=== PATIENT | male | born 1965 | race Two or more races ===

== ENCOUNTER 2018-11-29 14:09 | Emergency (ER) | payer OTHER ==
[~2018-11-29] VITALS: Ht 160 cm; Wt 66.2 kg
[2018-11-29 14:27] VITALS: BP 117/64
--- NOTE | 2018-11-29 15:09 | RAD ---
Chest PA and lateral 11/29/2018. Reason for exam: Cough and fever. History of TB. There is suggestion of focal opacity in the medial right lung base in the lower lobe. This could be mild infiltrate or atelectasis. The lungs otherwise are clear and no pleural fluid is seen. No apical cavitary or fibrotic change is seen. Heart size is normal. IMPRESSION: Focal right lower lobe opacity. Electronically signed by: Dragan Astorga Jr., MD (11/29/2018 3:06 PM) [facility]
[2018-11-29] MEDS ORDERED: cefTRIAXone IM 1 GM VIAL IM ONE (15:30)
[2018-11-29] MEDS ORDERED: BENZ100C PO (15:41)
[2018-11-29] MEDS ORDERED: ALBU2.5V8 INH (15:41)
[2018-11-29] MEDS ORDERED: AZIT250T PO (15:41)
--- NOTE | 2018-11-29 15:42 | PHYS DOC ---
Past Medical History Past Medical History: TB Additional Past Medical Histor: PT COMPLETED ALL TB MEDICATIONS [place] Past Surgical History: No Surgical History Alcohol Use: Heavy Additional Information: HASN'T DRANK IN ONE WEEK. Drug Use: None Adult General Chief Complaint Chief Complaint: FEVER HPI HPI Patient is a 53 year old non-Khmer speaking male with history of smoking who presents with complaining of cough and fever for one week. Patient complaining of subjective fever and productive cough and shortness of breath for 1 week that does not getting better with [id number] medication. Patient denies vomiting, diarrhea, headache and myalgia, sick contact, history of the same problem. Patient immediately return to yesterday 5 years ago and because of abnormal chest x-ray treated with TB medication. Review of Systems Review of Systems Constitutional: Denies fever or chills [] Eyes: Denies change in visual acuity, redness, or eye pain [] HENT: Denies nasal congestion or sore throat [] Respiratory: Denies cough or shortness of breath [] Cardiovascular: No additional information not addressed in HPI [] GI: Denies abdominal pain, nausea, vomiting, bloody stools or diarrhea [] : Denies dysuria or hematuria [] Musculoskeletal: Denies back pain or joint pain [] Integument: Denies rash or skin lesions [] Neurologic: Denies headache, focal weakness or sensory changes [] Endocrine: Denies polyuria or polydipsia [] All other systems were reviewed and found to be within normal limits, except as documented in this note. Current Medications Current Medications Current Medications Medications (Trade) Dose Ordered Sig/[facility] Start Time Stop Time Status Last Admin Dose Admin Ceftriaxone Sodium (Rocephin Im) 1 gm 1X ONCE 11/29/18 15:30 11/29/18 15:31 DC 11/29/18 15:35 1 GM Allergies Allergies Allergies Coded Allergies Type Severity Reaction Last Updated Verified No Known Drug Allergies 11/29/18 No Physical Exam Physical Exam Constitutional: Well developed, well nourished, no acute distress, non-toxic appearance, afebrile. [] HENT: Normocephalic, atraumatic, bilateral external ears normal, oropharynx moist, no oral exudates, nose normal. [] Eyes: PERRLA, EOMI, conjunctiva normal, no discharge. [] Neck: Normal range of motion, no tenderness, supple, no stridor. [] Cardiovascular:Heart rate regular rhythm, no murmur [] Lungs & Thorax: Bilateral breath sounds clear to auscultation [] Abdomen: Bowel sounds normal, soft, no tenderness, no masses, no pulsatile masses. [] Skin: Warm, dry, no erythema, no rash. [] Back: No tenderness, no CVA tenderness. [] Extremities: No tenderness, no cyanosis, no clubbing, ROM intact, no edema. [] Neurologic: Alert and oriented X 3, normal motor function, normal sensory function, no focal deficits noted. [] Psychologic: Affect normal, judgement normal, mood normal. [] Current Patient Data Vital Signs Vital Signs Date Time Temp Pulse Resp B/P (MAP) Pulse Ox O2 Delivery O2 Flow Rate FiO2 11/29/18 14:27 99.6 77 14 117/64 (81) 95 Room Air 99.6 EKG EKG [] Radiology/Procedures Radiology/Procedures [][facility] [address] [place] [address] IMAGING REPORT Signed PATIENT: NENA YEE ACCOUNT: [id number] : 1965 LOCATION: ER AGE: 53 SEX: M EXAM STATUS: REG ER ORD. PHYSICIAN: CASSANDRA NICHOLS MD REASON: cough and subjective fever, history of TB PROCEDURE: CHEST PA & LATERAL Chest PA and lateral 11/29/2018. Reason for exam: Cough and fever. History of TB. There is suggestion of focal opacity in the medial right lung base in the lower lobe. This could be mild infiltrate or atelectasis. The lungs otherwise are clear and no pleural fluid is seen. No apical cavitary or fibrotic change is seen. Heart size is normal. IMPRESSION: Focal right lower lobe opacity. Electronically signed by: Blossom Mackey Jr., MD (11/29/2018 3:06 PM) [facility] DICTATED and SIGNED BY: BLOSSOM MACKEY Jr, MD DATE: 11/29/18 150 Course & Med Decision Making Course & Med Decision Making Pertinent Imaging studies reviewed. (See chart for details) Evaluation of patient in ER showed 53-year-old male patient with history of s moking complaining of productive cough and shortness of breath and subjective fever. Patient had unremarkable physical exam. Chest x-ray showed small pneumonia in right lower lobe.. Patient had history of completed treatment for [place] ago without concern for TB in chest x-ray. Patient treated with IM Rocephin in ER and was advised to quit smoking. I've spoken with the patient and/or caregivers. I've explained the patient's condition, diagnosis and treatment plan based on information available to me at this time. I've answered the patient's and/or caregivers questions and addressed any concerns. The patient and/or caregivers have a good understanding the patient's diagnosis, condition and treatment plan as can be expected at this point. Vital signs have been stabilized. The patient's condition is stable for discharge from the emergency department. The patient will pursue further outpatient evaluation with her primary care provider or other designated consulting physician as outlined in the discharge instructions. Patient and/or caregivers are agreeable to this plan of care and follow-up instructions have been explained in detail. The patient and/or caregivers have received these instructions in written format and expressed understanding of these discharge instructions. The patient and her caregivers are aware that if any significant change in condition or worsening of symptoms should prompt him to immediately return to this of the closest emergency department. If an emergent department is not readily available I would encourage him to call 911. Nell Disclaimer Mikeon Disclaimer This electronic medical record was generated, in whole or in part, using a voice recognition dictation system. Departure Departure Impression: Primary Impression: Pneumonia Additional Impressions: Tobacco abuse Tobacco abuse counseling Disposition: HOME, SELF-CARE (at 1540) Condition: STABLE Referrals: NO PCP (PCP) Patient Instructions: Pneumonia, Adult, Smoking Cessation, Tips For Success Additional Instructions: Drink plenty of liquids Follow-up with your primary care physician in 3-5 days Return to ER if not getting better Scripts Azithromycin (ZITHROMAX) 250 Mg Tablet 1 PKG PO UD for infection, #1 PKG Prov: CASSANDRA NICHOLS MD 11/29/18 Benzonatate (TESSALON PERLE) 100 Mg Capsule 1 CAP PO TID for cough, #21 CAP Prov: CASSANDRA NICHOLS MD 11/29/18 Albuterol Sulfate (PROAIR HFA INHALER) 8.5 Gm Hfa.aer.ad 2 PUFF INH PRN Q6HRS PRN for SHORTNESS OF BREATH, #1 INHALER 0 Refills Prov: CASSANDRA NICHOLS MD 11/29/18 Problem Qualifiers Primary Impression: Pneumonia Pneumonia type: due to unspecified organism Laterality: right Lung location: lower lobe of lung Qualified Codes: J18.1 - Lobar pneumonia, unspecified organism CASSANDRA NICHOLS MD Nov 29, 2018 15:41
== END 2018-11-29 15:50 | disposition home or self-care (01) ==
LOC: ER 14:09
DX: J18.1 Lobar pneumonia, unspecified organism (principal); Z72.0 Tobacco use; Z71.6 Tobacco abuse counseling; F10.20 Alcohol dependence, uncomplicated; Y90.9 Presence of alcohol in blood, level not specified
CPT/HCPCS: 71046; 96372; 99284; J0696